=== PATIENT | female | born 2005 | race Two or more races ===

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

== ENCOUNTER 2024-02-26 12:34 | Emergency (ER) | payer MEDICAID ==
[~2024-02-26] VITALS: Ht 162.6 cm; Wt 81.8 kg
[~2024-02-26 12:34] MED LIST changes: +ONDA4TAB12 PO
[2024-02-26 12:53] VITALS: BP 165/8; PULSE 87; O2SAT 98
[2024-02-26 13:56] VITALS: RESP 18
[2024-02-26 13:59] VITALS: TEMP 98
[2024-02-26] MEDS ORDERED: GUAI120015 PO (14:18)
[2024-02-26] MEDS ORDERED: ONDA8TAB13 PO (14:18)
[2024-02-26] MEDS ORDERED: ibuprofen tablet 400 MG TABLET PO ONE (14:20)
[2024-02-26] MEDS: mag hydrox/Alum hydrox/simeth 30ml oral suspension PO ONE (15:19)
[2024-02-26] MEDS: ondansetron 4mg rapidly disintigrating tab PO ONE (15:19)
== END 2024-02-26 15:25 | disposition home or self-care (01) ==
LOC: ER 12:34
DX: J11.1 Influenza due to unidentified influenza virus with other respiratory manifestations (principal); K21.9 Gastro-esophageal reflux disease without esophagitis; R53.83 Other fatigue; Z79.2 Long term (current) use of antibiotics; Z79.899 Other long term (current) drug therapy
CPT/HCPCS: 99283

== ENCOUNTER 2025-10-04 17:25 | Emergency (ER) | payer MEDICAID ==
[~2025-10-04] VITALS: Ht 162.6 cm; Wt 81.5 kg
[~2025-10-04 17:25] MED LIST changes: +GUAI120015 PO; +ONDA-243 PO; +ONDA-245 PO; -ONDA4TAB12 PO
[2025-10-04 19:32] LABS: MEAN PLATELET VOLUME 8.5 FL (7.4-10.4); RED CELL DISTRIBUTION WIDTH 13.6 % (11.5-14.5)
[2025-10-04 19:46] LABS: CREATININE 0.73 MG/DL (0.40-0.90); TOTAL CARBON DIOXIDE 27.5 MMOL/L (24-32); eCRCL 106 ML/MIN; eGFR > 90 ML/MIN
[2025-10-04 19:57] LABS: LEUKOCYTE ESTERASE ,URINE NEGATIVE (Neg); NITRITES, URINE NEGATIVE (Neg); OCCULT BLOOD,URINE LARGE (Neg)
[2025-10-04 19:59] LABS: URINE HCG NEGATIVE (NEG)
[2025-10-04 20:01] LABS: UA COLLECTION TYPE NON-SPECIFIED
[2025-10-04 20:03] LABS: MUCUS STRANDS FEW /LPF (Neg); SQUAMOUS EPITHELIAL CELL,UR MODERATE /LPF (FEW)
[2025-10-04] MEDS ORDERED: IBUP-1986 PO (20:14)
--- NOTE | 2025-10-04 20:14 | Physician Documentation ---
History of Present Illness ~ Chief Complaint: Vaginal Bleeding Stated Complaint: VAGINAL BLEEDING Time Seen by MD: 19:47 Primary Medical Doctor: [facility] Mode of Arrival: POV HPI This is a 19-year-old female who presents with concern for one-month of vaginal bleeding going through 2-3 tampons daily, patient does report clots. Patient reports he is on Nexplanon superintendent terminal hormonal control which results in her not normally having periods and if she does have periods there extremely light, though she does note that approximately once a year she will have a two week period with heavy bleeding, patient reports that she saw her chief of internal medicine two weeks prior after two weeks of bleeding with a normal gynecologic exam with the chief of internal medicine reportedly indicating this may be a side effect of the Nexplanon. Patient reports some suprapubic cramping that has consistent with her menstrual cramps. Patient reports no other acute symptoms or concerns. Medication Reconciliation Allergies: Coded Allergies: No Known Allergies (Unverified , 10/04/25) Scheduled Amox Tr/Potassium Clavulanate (Augmentin Es-600 Suspension), 5 ML PO Q12H Guaifenesin (Mucinex), 1 TAB PO Q12H Ibuprofen (Ibuprofen), 1 TAB PO Q8H ONDANSETRON ODT 4mg tablet (Ondansetron Odt), 1 TABLET PO Q6H Phenazopyridine HCl (Pyridium), 1 TAB PO Q8H Scheduled PRN Ondansetron 8mg ODT (Ondansetron Odt), 1 TAB PO TID PRN for nausea/vomiting Past Medical History Past Medical History: Asthma, UTI, Anxiety Past Surgical History: no surgical history Alcohol Use: None Drug Use: none Lives In: Home Occupation: child Review of Systems ROS As stated above in the HPI, otherwise all systems are reviewed and negative. Physical Exam Vital Signs: Temperature: 98.5, Source: Temporal, Heart Rate: 109, Respiratory Rate: 14, BP: 138/88, Pulse Oximetry: 96, Weight: 81.500 Oxygen Flow Rate: 0 Physical Exam VITALS: Reviewed and as above. GENERAL: Alert, nontoxic appearing, no apparent distress. RESPIRATORY: No increased work of breathing, no respiratory distress, speaking in full clear sentences GI: Nontender to palpation Progress Results/Orders Results/Orders Completed Orders - MIKE,ANNETTE W CARTON REPAIRER Ibuprofen Tablet (Motrin Tablet) (10/04/25 20:15) Medications Received in ER Medications (Trade) Dose Ordered Sig/Martha Route PRN Reason Start Time Stop Time Status Last Admin Dose Admin (Motrin tablet) 800 mg ONCE ONCE PO 10/04/25 20:15 10/04/25 20:16 DC 10/04/25 20:27 800 MG Vital Signs 10/04/25 10/04/25 10/04/25 10/04/25 17:35 18:51 19:01 20:28 Temp 98.5 98.6 Pulse 86 109 99 Resp 16 14 18 B/P (MAP) 154/85 138/88 (105) 136/86 Pulse Ox 99 96 99 O2 Flow Rate 0 0 Laboratory Tests Test 10/04/25 19:20 10/04/25 19:35 White Blood Count 11.5 H Red Blood Count 4.53 Hemoglobin 13.5 Hematocrit 40.3 Mean Corpuscular Volume 89.1 Mean Corpuscular Hemoglobin 29.9 Mean Corpuscular Hemoglobin Concent 33.5 Red Cell Distribution Width 13.6 Platelet Count 291 Mean Platelet Volume 8.5 Neutrophils (%) (Auto) 63.1 Lymphocytes (%) (Auto) 29.7 Monocytes (%) (Auto) 5.6 Eosinophils (%) (Auto) 1.0 Basophils (%) (Auto) 0.6 Neutrophils # (Auto) 7.3 Lymphocytes # (Auto) 3.4 Monocytes # (Auto) 0.7 Eosinophils # (Auto) 0.1 Basophils # (Auto) 0.1 CBC Comment Sodium Level 138 Potassium Level 3.8 Chloride Level 105 Carbon Dioxide Level 27.5 Anion Gap 6 L Blood Urea Nitrogen 10 Creatinine 0.73 Estimated GFR/1.73 m2 > 90 BUN/Creatinine Ratio 13.7 Glucose Level 88 Calcium Level 9.0 Total Bilirubin 0.3 Aspartate Amino Transf (AST/SGOT) 7 L Alanine Aminotransferase (ALT/SGPT) 10 L Alkaline Phosphatase 75 Total Protein 8.3 H Albumin 4.5 Globulin 3.8 Albumin/Globulin Ratio 1.2 Chemistry Comments Urine Specimen Description Non-specified Urine Color Yellow Urine Clarity Clear Urine pH 6.0 Urine Specific [place] 1.020 Urine Protein Negative Urine Glucose (UA) Negative Urine Ketones Negative Urine Occult Blood Large H Urine Nitrite Negative Urine Bilirubin Negative Urine Urobilinogen 0.2 Urine Leukocyte Esterase Negative Urine RBC 10-20 Urine WBC 0-4 Urine Squamous Epithelial Cells Moderate Urine Bacteria None seen Urine Mucus Few Urine Culture Indicated Not ind Volume Urine Centrifuged 10 ml Urine HCG, Qualitative Negative Urine Comment Medical Decision Making Additional information obtaine: N/A Findings This is an otherwise well 19-year-old female who was on superintendent terminal hormonal control who presents with one-month of vaginal bleeding and suprapubic cramps that are described as menstrual cramps, remainder of physical exam benign and lab work did not show evidence of anemia, infection, metabolic or electrolyte disturbance, patient is hemodynamically stable. Given reassuring lab findings and physical exam patient is appropriate for outpatient follow up and we will be referred back to gynecology, I discussed this with the patient who agrees with the plan and is able to follow up promptly with her chief of internal medicine. Patient will be placed on high-dose ibuprofen for abnormal uterine bleeding and menstrual aircraft electrician mps. Patient provided home care instructions return to care precautions, and follow up instructions which he verbalized understanding of. Urinary Diff Dx:Considerations: Include: , Aortic dissection, Appendicitis, Pyelonephritis, Renal failure, Urolithiasis, UTI Genital Diff Dx:Considerations: Include: -Complete, - Incomplete, -Inevitable, Ablortion-Missed, -Threatened, Abruptio placentae, Blood loss anemia, Cervicitis, Dsymenorrhea, Ectopic , Foreign body, Hormonal, Intrauterine , Menorrhagia, Menometrorrhagia, Menstrual bleeding, Physiologic discharge, PID, Vaginitis Departure Time of Disposition: 20:15 Disposition: 01 HOME / SELF CARE / HOMELESS Impression: Primary Impression: Vaginal bleeding Condition: Improved Discharge Instructions: Dysfunctional Uterine Bleeding Additional Instructions: Please take the prescribed ibuprofen for the next five days, the medication with food to avoid stomach upset. Follow up as soon as possible with your chief of internal medicine. Please also follow up with your primary care provider in the next few days. Please return to the emergency department for any new or worsening concerning symptoms. Referrals: NO PRIMARY CARE PROVIDER (PCP) Prescriptions Ibuprofen (Ibuprofen) 800 Mg Tablet 1 TAB PO Q8H for pain for 5 Days, #15 TAB 0 Refills Prov: ANNETTE MCKEON 10/04/25 Education Educated: Patient Educated regarding: diagnosis, treatment, prognosis, need for follow up Signature Scribe Signature: No scribe Attestation: The note accurately reflects work and decisions made by me.NIMESH Carvalho 10/05/25 00:51 ANNETTE MCKEON Oct 04, 2025 20:13
[2025-10-04] MEDS: ibuprofen tablet 400 MG TABLET PO ONE (20:27)
[2025-10-04 20:28] VITALS: BP 136/86; PULSE 99; RESP 18; TEMP 98.6; O2SAT 99
== END 2025-10-04 20:31 | disposition home or self-care (01) ==
LOC: ER 17:26
DX: N93.9 Abnormal uterine and vaginal bleeding, unspecified (principal); J45.909 Unspecified asthma, uncomplicated; F41.9 Anxiety disorder, unspecified; Z87.440 Personal history of urinary (tract) infections; Z79.3 Long term (current) use of hormonal contraceptives; Z79.899 Other long term (current) drug therapy
CPT/HCPCS: 36415; 80053; 81001; 81025; 85025; 99283

== ENCOUNTER 2025-11-04 14:55 | Emergency (ER) | payer OTHER, MEDICAID ==
[~2025-11-04] VITALS: Ht 162.6 cm; Wt 81.9 kg
[~2025-11-04 14:55] MED LIST changes: +IBUP-1986 PO
[2025-11-04 15:17] VITALS: BP 139/85; PULSE 101; O2SAT 100
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
[2025-11-04] MEDS: ibuprofen tablet 400 MG TABLET PO ONE (15:55)
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
[2025-11-04 17:02] VITALS: RESP 18
[2025-11-04 17:07] VITALS: TEMP 98.4
== END 2025-11-04 17:08 | disposition home or self-care (01) ==
LOC: ER 14:55
DX: S13.4XXA Sprain of ligaments of cervical spine, initial encounter (principal); R07.89 Other chest pain; F41.9 Anxiety disorder, unspecified; Z87.440 Personal history of urinary (tract) infections; Z79.899 Other long term (current) drug therapy; V43.52XA Car driver injured in collision with other type car in traffic accident, initial encounter; Y93.89 Activity, other specified; Y92.89 Other specified places as the place of occurrence of the external cause; Y99.8 Other external cause status
CPT/HCPCS: 70450; 71045; 72125; 99284